=== PATIENT | male | born 1960 | race Caucasian/White ===

== ENCOUNTER 2022-09-21 09:09 | Outpatient (OUT) | payer OTHER, SELFPAY ==
--- NOTE | 2022-09-21 09:17 | ECG_ITS ---
[facility] Test Date: 2022-09-21 Pat Name: Dave Jiménez Department: Room: - Gender: Male Internal Auditor: : 1960 Requested By: Order Number: [id number] Reading MD: TYLER MEANS Measurements Intervals [place] Rate: 55 P: 52 MS: 182 QRS: -1 QRSD: 120 T: 6 QT: 460 QTc: 442 Interpretive Statements SINUS BRADYCARDIA MODERATE INTRAVENTRICULAR CONDUCTION DELAY [110+ ms QRS DURATION] No previous ECG available for comparison Electronically Signed On 09-22-2022 6:54:04 EDT by TYLER MEANS
--- NOTE | 2022-09-21 10:04 | PM.PRESUREVA ---
History of Present Illness History of Present Illness Chief complaint: PAT visit Narrative: Patient presents for preadmission testing accompanied by his . The patient reports a long history of inguinal hernias. He states he's had his right inguinal hernia repaired three times and left repaired once. Over the past couple of months, he's had a reoccurrence of the right inguinal hernia which is painful and bulging, and he notes some discomfort on the left as well. He denies bowel changes, nausea, vomiting, or any other complaints. Review of Systems ROS Narrative REVIEW OF SYSTEMS: Negative except as stated in HPI, ten or more systems reviewed. Constitutional: No fever , chills, weakness ENT: No sore throat or epistaxis Cardiovascular: No edema, chest pain, palpitations, or activity intolerance Respiratory: No shortness of breath, cough, or wheezing Musculoskeletal: No joint pain or swelling Gastrointestinal: No abdominal pain, constipation, diarrhea, or vomiting Genitourinary: No dysuria or hematuria Neurological: No numbness, tingling, weakness, or headache Psychiatric: No mood changes PFSH PFS Medical History (Updated 09/21/22 @ 09:48 by Riri Smith NP) Surgical History (Updated 09/21/22 @ 09:45 by Riri Smith NP) (2011) (2012) (2005) Family History (Updated 09/21/22 @ 09:41 by Riri Smith NP) Other Family history of diabetes mellitus Family history of heart disease Family history of hypertension Family history of lung cancer Social History (Updated 09/21/22 @ 10:02 by Riri Smith NP) Within the past year, how often did you have a drink containing alcohol: 4 or more times a week Smoking status: Current every day smoker What tobacco products do you use: cigarettes Pack-years instructions: Please document either packs per day or cigarettes per day in order for pack years to calculate correctly. If using both packs per day and cigarettes per day, please make sure that they denote the same thing. If they differ, pack-years will calculate based on packs per day. Packs Per Day Cigarettes Per Day 1/4 of a pack 5 1/2 a pack 10 3/4 of a pack 15 1 pack 20 1.5 pack 30 2 packs 40 2.5 packs 50 3 packs 60 Packs per day: 0.5 Years smoked: 50 Smoking pack-years: 25.00 Previous occupational history: [employer], second class welder Highest level of school completed/degree received: high school graduate Meds Home Medications and Allergies Home Medications Medication Instructions Recorded Confirmed Type Neuriva Supplement PO 1 tab PO DAILY 09/21/22 09/21/22 History cholecalciferol (vitamin D3) 25 25 mcg PO DAILY 09/21/22 09/21/22 History mcg (1,000 unit) capsule famotidine 20 mg tablet (Pepcid AC) 20 mg PO DAILY 09/21/22 09/21/22 History levothyroxine 75 mcg tablet 75 mcg PO DAILY 09/21/22 09/21/22 History (Euthyrox) Allergies Allergy/AdvReac Type Severity Reaction Status Date / Time ranitidine [From Zantac] Allergy Unknown Verified 09/21/22 09:36 Exam Narrative Exam Narrative: Constitutional: Awake, alert, comfortable, well-appearing, nontoxic, interactive, vital signs as charted Head: Normocephalic atraumatic Neck: Supple, normal appearance, normal range of motion, no meningeal signs, no lymphadenopathy Respiratory: No respiratory distress, breath sounds clear Cardiovascular: Regular rate and rhythm, strong and regular heart tones Musculoskeletal: Normal gait, no swelling or edema Skin: No rashes or induration, no lesions, only visible skin inspected Neuro: No neurological deficits, normal sensation Psychiatric: Oriented ?3, normal affect Assessment and Plan Assessment and Plan (1) Hernia: Plan Robotic repair of right inguinal hernia scheduled with Dr. Timmons 10/09/2022.
[2022-09-21 10:47] LABS: Basophils Percent Auto 0.8 % (0.2-2.0); Eosinophils Absolute Auto 0.1 10^3/uL (0.0-0.7); Hematocrit 40.4 % (42.0-54.0); Hemoglobin 13.5 g/dL (14.0-18.0); Immature Granulocytes Abs Auto 0.01 10^3/uL (0.00-0.03); Immature Granulocytes Pct Auto 0.4 % (0.0-0.5); Lymphocytes Absolute Auto 0.5 10^3/uL (1.2-3.8); Mean Corpuscular HGB Conc 33.4 g/dL (29.9-35.2); Mean Corpuscular Hemoglobin 32.5 pg (25.9-34.0); Mean Corpuscular Volume 97.1 fL (80.0-94.0); Mean Platelet Volume 10.3 fL (9.5-13.5); Monocytes Absolute Auto 0.3 10^3/uL (0.3-0.8); Monocytes Percent Auto 12.6 % (1.7-12.0); Neutrophils Absolute Auto 1.6 10^3/uL (1.4-6.5); Neutrophils Percent Auto 63.2 % (43.0-75.0); Platelet Count 185 10^3/uL (150-450); Red Blood Count 4.16 10^6/uL (4.70-6.10); Red Cell Distribution Width 13.3 % (11.0-15.0); White Blood Count 2.5 10^3/uL (4.0-11.0)
== END 2022-09-21 09:10 ==
LOC: PST 09:15
PROVIDERS: Surgery; PCP Family Medicine
DX: Z01.810 Encounter for preprocedural cardiovascular examination (principal); Z01.812 Encounter for preprocedural laboratory examination; K40.31 Unilateral inguinal hernia, with obstruction, without gangrene, recurrent; D64.9 Anemia, unspecified
CPT/HCPCS: 36415; 85025; 93005; G0463

== ENCOUNTER 2022-10-09 07:36 | Day surgery (SDC) | payer OTHER, SELFPAY ==
[2022-09-21 09:39] VITALS: BP 137/80; PULSE 58; RESP 14; TEMP 36.5; O2SAT 98; BMI 25.3
[2022-10-09] VITALS (12 sets, daily range): BP systolic 108–151; BP diastolic 59–83; PULSE 48–87; RESP 13–26; TEMP 36.2–36.3; O2SAT 93–99; BMI 24.9
[2022-10-09] MEDS: LACTATED RINGER'S SOLUTION 1,000 ML 50 ML IV (10:31)
--- NOTE | 2022-10-09 11:09 | PC.NURSE ---
1102 START OF BLOCK PROCEDURE VERSED WAS GIVEN BY ASHUTOSH REYNOSO. PATIENT IS STABLE, PROCEDURE IS COMPLETED AT 1106. PATIENT TOLERATED WELL. Amanda GARDNER, TRAM AND ASHUTOSH REYNOSO
[2022-10-09] MEDS: CEFAZOLIN SODIUM/DEXTROSE 2 GM/50 ML PIGGYBACK IV (11:25)
[2022-10-09] MEDS: BUPIVACAINE HCL 0.5% PF 50 MG/10 ML VIAL 20 ML INJ (11:56)
[2022-10-09] MEDS: 0.9 % SODIUM CHLORIDE 10 ML SYRINGE - SALINE FLUSH INJ (11:56)
[2022-10-09] MEDS: LACTATED RINGER'S SOLUTION 1,000 ML 1000 ML IV (13:03)
--- NOTE | 2022-10-09 14:21 | PC.NURSE ---
medicated with Percocet for pain as ordered
--- NOTE | 2022-10-09 15:37 | PC.NURSE ---
PATIENT GOT UP AND AMBULATED TO THE BATHROOM TO URINATE.
--- NOTE | 2022-10-09 15:56 | PC.NURSE ---
PATIENT IS DRESSED AND READY TO GO HOME. PATIENT IS RATING PAIN AT A 7 AND STATES PAIN IS TOLERABLE TO GO HOME.
--- NOTE | 2022-10-12 12:43 | PM.GSPRC ---
Indications for Procedure: Patient is a 62-year-old male who was seen recently for an apparent recurrent right inguinal hernia. Following evaluation robotic repair of the recurrent right inguinal hernia was recommended. The risks benefits options and potential complications of the procedure were discussed in detail with the patient agreed to proceed and consent was signed. Pre-op diagnosis: Recurrent right inguinal hernia Post-op diagnosis: same Procedure: Robotic repair of recurrent right inguinal hernia with mesh Anesthesia: ELLA Surgeon: Sha Timmons Procedure Summary: Patient was brought to the operating room and placed in the supine position. Gen. anesthesia was induced the patient was intubated. The abdomen is prepped in sterile fashion. Anesthesia performed a regional block. Abdomen is then again prepped and draped in sterile fashion. following local anesthesia a small incision was made in the left upper abdomen. with laparoscopic guidance an 8 mm robotic trocar was placed through this incision and advanced into the peritoneal cavity. The abdomen is then insufflated to 15 mmHg of carbon dioxide. The camera was introduced and safe port site entry confirmed. Two additional 8 mm robotic ports were placed one in the right lateral abdomen and one just superior to the umbilicus following local anesthesia under direct visualization. The patient was then placed in Trendelenburg position. At this time the da Altaf XI was brought to the field. All ports were docked and instruments introduced in standard fashion. At this time I left the operating table and attended the surgeon's memorial counselor. The recurrent right inguinal hernia was readily identified. The peritoneum was incised above the defect from the midline extending to the # lateral abdomen. The peritoneal flap was then created with electrocautery as well as blunt and sharp dissection. A significant amount of omentum was noted to be herniated through a direct defect. This was reduced with traction. There didn't appear to be a mesh plug in this region also and to allow subsequent closure of the peritoneum to portions of the mesh plug were excised. With a combination of the traction as well as cautery and sharp dissection the sac was freed from the associated cord structures and completely reduced to the level of the peritoneum. Gilbert's ligament was then identified also. The pre-peritoneal space was then further expanded to allow mesh placement. A 15 cm x 9 cm progrip mesh was then introduced into the peritoneal cavity. This was placed in the preperitoneal space and unfolded and flattened with excellent coverage of the hernia defect as well as other potential sites for defects. Hemostasis was noted. The peritoneal defect was then closed with a running suture of 3-0V LOC. The portions of the mesh were placed and then retrieval bag and brought out externally. No other abnormalities were noted. The da Altaf XI was then undocked and the abdomen desufflated with removal of the ports. Incisions were closed with subcuticular sutures of 4-0 Vicryl. Sponge needle and instrument counts were correct at the end of the procedure. The patient tolerated the procedure well and was transferred to the recovery area in stable condition. Estimated blood loss (mL): 5 Specimens: None Complications: No
== END 2022-10-09 15:58 | disposition home or self-care (01) ==
PROVIDERS: PCP Family Medicine; Visit Provider Surgery
PROC: (CPT 49651; principal; 2022-10-09 08:30)
DX: K40.91 Unilateral inguinal hernia, without obstruction or gangrene, recurrent (principal); F17.210 Nicotine dependence, cigarettes, uncomplicated; K21.9 Gastro-esophageal reflux disease without esophagitis; E07.9 Disorder of thyroid, unspecified; Z79.890 Hormone replacement therapy; Z79.899 Other long term (current) drug therapy; M19.90 Unspecified osteoarthritis, unspecified site; Z96.649 Presence of unspecified artificial hip joint
CPT/HCPCS: 49651; 36415; 64488; C1781; J1170; J2704